=== PATIENT | female | born 1965 | race African-American/Black ===

== ENCOUNTER 2018-02-19 12:45 | Observation (INO) | payer SELFPAY ==
[~2018-02-19] VITALS: Ht 167.6 cm; Wt 107.5 kg
[2018-02-19 13:40] LABS: HEMATOCRIT 39.7 % (36.0-46.0); HEMOGLOBIN 13.3 G/DL (11.9-15.5); MCH 29.5 PG (29.0-34.0); MCHC 33.5 G/DL (30.0-36.0); PLATELET COUNT 270 K/uL (156-360); RBC DIS.WIDTH-CV 12.8 % (11.8-14.6); RBC DIS.WIDTH-SD 41.1 % (39-53); RED BLOOD COUNT 4.51 M/uL (3.80-5.20); WHITE BLOOD COUNT 10.5 K/uL (4.1-10.2)
[2018-02-19 13:52] LABS: ALBUMIN 3.8 g/dL (3.2-4.8); CHLORIDE 100 mEq/L (99-109); POTASSIUM 4.3 mEq/L (3.7-5.4); SODIUM 136 mEq/L (136-147)
[2018-02-19 13:54] LABS: GLUCOSE 240 mg/dL (70-99); TOTAL PROTEIN 7.7 g/dL (6.4-8.3)
[2018-02-19 13:56] LABS: TOTAL BILIRUBIN 0.3 mg/dL (0.0-1.0)
[2018-02-19 13:58] LABS: ALKALINE PHOSPHATASE 149 IU/L (3-129); CREATININE 0.8 mg/dL (0.6-1.3)
[2018-02-19 13:59] LABS: AST (GOT) 16 IU/L (2-34); UREA NITROGEN (BUN) 9 mg/dL (9-23)
[2018-02-19 14:01] LABS: ALT (GPT) 19 IU/L (3-49); LIPASE 46 U/L (1.0-51.0)
[2018-02-19 14:06] LABS: GFR ESTIMATE (CALCULATED) > 59 mL/min/
[2018-02-19 14:23] LABS: TROP-I INTERPRETATION NEGATIVE; TROPONIN-I < 0.01 ng/mL (0.0-0.30)
[2018-02-19 15:05] LABS: APPEARANCE CLEAR ((CLEAR)); BILIRUBIN NEGATIVE; BLOOD NEGATIVE; COLOR STRAW ((YELLOW)); GLUCOSE (STRIP) 50; KETONES NEGATIVE; LEUKOCYTES NEGATIVE; NITRITE NEGATIVE; PROTEIN (STRIP) NEGATIVE; SPECIFIC GRAVITY 1.006 (1.000-1.030); UCUL ADDED? NO; UROBILINOGEN 0.2 MG/DL (0.2-1.0)
[2018-02-19] MEDS ORDERED: PROCARDIA20 MG PO (17:03)
[2018-02-19] MEDS ORDERED: ENALAPRIL MALEA10 MG PO (17:04)
[2018-02-19] MEDS ORDERED: LO-DOSE ASPIRIN81 M2 PO (17:06)
[2018-02-19] MEDS ORDERED: [UNRECOGNIZED DRUG - CODE] (17:13)
[2018-02-19 19:55] VITALS: BP 135/68
[2018-02-19 20:55] LABS: TROP-I INTERPRETATION NEGATIVE; TROPONIN-I < 0.01 ng/mL (0.0-0.30)
[2018-02-19 23:58] VITALS: BP 97/52
[2018-02-20 02:17] LABS: HEMATOCRIT 39.5 % (36.0-46.0); HEMOGLOBIN 13.4 G/DL (11.9-15.5); MCH 29.7 PG (29.0-34.0); MCHC 33.9 G/DL (30.0-36.0); MCV 87.6 FL (83-99); PLATELET COUNT 268 K/uL (156-360); RBC DIS.WIDTH-CV 12.9 % (11.8-14.6); RBC DIS.WIDTH-SD 41.1 % (39-53); RED BLOOD COUNT 4.51 M/uL (3.80-5.20); WHITE BLOOD COUNT 10.3 K/uL (4.1-10.2)
[2018-02-20 02:27] LABS: CHLORIDE 102 mEq/L (99-109); POTASSIUM 4.1 mEq/L (3.7-5.4); SODIUM 140 mEq/L (136-147)
[2018-02-20 02:28] LABS: GLUCOSE 132 mg/dL (70-99)
[2018-02-20 02:32] LABS: CREATININE 0.8 mg/dL (0.6-1.3); GFR ESTIMATE (CALCULATED) > 59 mL/min/
[2018-02-20 02:33] LABS: UREA NITROGEN (BUN) 9 mg/dL (9-23)
[2018-02-20 02:39] LABS: TROP-I INTERPRETATION NEGATIVE; TROPONIN-I < 0.01 ng/mL (0.0-0.30)
[2018-02-20 03:36] LABS: HDL CHOLESTEROL 43 MG/DL (Desirable>=50); LDL CHOLESTEROL 108 mg/dL (Desirable<100); NON-HDL CHOLESTEROL 129 mg/dL (Desirable<160); TOTAL CHOLESTEROL 172 mg/dL (Desirable<200); TRIGLYCERIDES 104 MG/DL (Normal: <150)
[2018-02-20 04:40] VITALS: BP 96/60
[2018-02-20 08:06] VITALS: BP 136/81
[2018-02-20] MEDS ORDERED: NITROSTAT0.4 MG SL (09:24)
[2018-02-20] MEDS ORDERED: METFORMIN HCL500 MG PO (11:18)
== END 2018-02-20 12:57 | disposition home or self-care (01) ==
LOC: EME 12:45 → 4SOUTH 15:38 → EDOF 15:38 → ENRESERV 15:41 → 4SOUTH 19:52
PROVIDERS: Hospitalist; Physician Assistant
DX: R07.9 Chest pain, unspecified (principal); R06.02 Shortness of breath; I10 Essential (primary) hypertension; E11.65 Type 2 diabetes mellitus with hyperglycemia; Z82.49 Family history of ischemic heart disease and other diseases of the circulatory system; E66.01 Morbid (severe) obesity due to excess calories; Z68.42 Body mass index [BMI] 45.0-49.9, adult; M54.9 Dorsalgia, unspecified; M25.569 Pain in unspecified knee
CPT/HCPCS: 71045; 80048; 80053; 80061; 81003; 82948; 83690; 84484; 85027; 85379; 93005; 99281; 99285; G0378; J1644; J1815; J2270